=== PATIENT | male | born 1990 | race Caucasian/White ===

== ENCOUNTER 2023-05-07 23:55 | Emergency (ER) | payer OTHER, SELFPAY ==
[2023-05-08 00:03] VITALS: BP 157/93; PULSE 63; PULSE 66; RESP 18; TEMP 36.8; O2SAT 98; O2SAT 99; BMI 33.6
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
[2023-05-08 00:13] VITALS: BP 128/81; PULSE 62; RESP 16; O2SAT 98
[2023-05-08 00:35] VITALS: BP 135/86; PULSE 63; RESP 16; TEMP 36.8; O2SAT 98
[2023-05-08 01:45] VITALS: BP 132/78; PULSE 63; RESP 16; TEMP 36.8; O2SAT 98
[2023-05-08 01:47] VITALS: BP 132/78; BP 147/94; PULSE 62; PULSE 63; RESP 16; RESP 18; TEMP 36.8; O2SAT 100
== END 2023-05-08 01:48 | disposition home or self-care (01) ==
PROVIDERS: Emergency Provider Internal Medicine
DX: S40.012A Contusion of left shoulder, initial encounter (principal); S80.12XA Contusion of left lower leg, initial encounter; V86.55XA Driver of 3- or 4- wheeled all-terrain vehicle (ATV) injured in nontraffic accident, initial encounter
CPT/HCPCS: 70450; 71250; 72125; 74176; 94761; 99283; 99284; 99291